=== PATIENT | female | born 1995 | race Caucasian/White ===

== ENCOUNTER 2020-10-16 21:34 | Emergency (ER) | payer MEDICAID, SELFPAY ==
[2020-10-16 21:35] VITALS: BP 129/79; PULSE 82; RESP 16; TEMP 36.6; O2SAT 99; BMI 29.2
--- NOTE | 2020-10-16 23:22 | RAD_ITS ---
STUDY: X-RAY CHEST REASON FOR EXAM: Female, 25 years old. cough TECHNIQUE: Single frontal view of the chest. COMPARISON: None. FINDINGS: The lungs are clear and expanded. There is no demonstrated pleural abnormality. Normal size heart. Normal mediastinum and tone. Normal visualized pulmonary arteries. Normal visualized aortic arch and descending thoracic aorta. Normal visualized thoracic spine. Normal visualized ribs, clavicles, and shoulders. There is no demonstrated abnormality of the visualized soft tissue structures of the upper abdomen. RAD/Chest 1 View (Portable) IMPRESSION: Normal x-ray examination of the chest. Electronically Signed: Itz Carlton MD at 23:59 EDT Tel , Service support ,
[2020-10-16 23:35] LABS: Absolute Lymphocyte Count 2.47 X10^3/uL (0.83-4.51); Basophil# 0.07 X10^3/uL; Basophil% 0.8 % (0-1); Eosinophil# 0.16 X10^3/uL; Eosinophils% 1.8 % (0-5); Hematocrit 45.8 % (37-47); Hemoglobin 14.5 g/dL (12.0-15.0); Lymphocyte # 2.47 X10^3/ul (0.83-4.51); Lymphocyte % 28.3 % (19-41); Mean Corp Hgb Conc 31.7 g/dL (32-36); Mean Corpuscular Hgb 29.1 pg (27.0-32.0); Mean Platelet Vol. 11.4 fl (6.2-12.0); Monocyte# 1.04 X10^3/uL; Monocyte% 11.9 % (0-10); NRBC Flagged by Analyzer 0 % (0-5); Neutrophil # 4.96 X10^3/uL (2.7-7.7); Neutrophil % 56.9 % (47-70); Platelet Count 361 K/mm3 (150-450); RBC Distribution Width CV 13.2 % (11.6-14.6); RBC Distribution Width SD 44.9 fl (35.1-43.9); Red Blood Count 4.98 M/mm3 (4.2-5.4); White Blood Count 8.7 K/mm3 (4.4-11.0)
[2020-10-16 23:40] LABS: Anion Gap 6 (5-15); BUN 16 mg/dL (7-18); Calcium,Total 9.8 mg/dL (8.5-10.1); Chloride 106 mmol/L (98-107); EST Glomerular Filtration Rate 73 mL/min (>60); Est Glom Filt Rate - Afr Amer 89 mL/min (>60); Estimated Creatinine Clearance 62.85 ml/min; Glucose 82 mg/dL (74-106); Potassium 4.3 mmol/L (3.5-5.1); Sodium Level 139 mmol/L (136-145)
[2020-10-16] MEDS: Metoclopramide 10 MG/2 ML Vial IV (23:40)
[2020-10-16] MEDS: Ketorolac 30 MG/ML Syringe IV (23:40)
[2020-10-16] MEDS: DiphenhydrAMINE 50 MG/ML Syringe 25 MG IV (23:40)
[2020-10-16] MEDS: 0.9% Normal Saline 1,000 ML 1000 ML IV (23:40)
--- NOTE | 2020-10-17 01:21 | EX.ED.DYSGE1 ---
HPI History of Present Illness Chief Complaint: Headache Informant: patient Onset/Context/Timing Onset: Days (3 days) Context: Gradual Onset Timing: Waxes and wanes Narrative Narrative: Patient presents with a 3-day history of migraine headache. She states it is worse at her temples. She also complains of some shortness of breath and body aches. She reports decreased energy and cough with yellow sputum production. She does not know if she has had a fever but has had some chills. Patient does not believe she has Covid but did not receive the vaccine. [facility] Medical History Asthma Migraine Home Medications NK 10/16/20 [History Last Taken Unknown] Allergy/AdvReac Type Severity Reaction Status Date / Time No Known Allergies Allergy Verified 10/16/20 21:34 Social History Smoking Status: Current every day smoker tobacco type: e-cigarettes ROS ROS ED Constitutional Constitutional ED: Reports chills and sweats; Denies fever(s) Eyes Eyes: Denies change in vision ENT ENT ED: Denies sore throat Cardiovascular Cardiovascular: Denies chest pain Respiratory/Chest Respiratory/Chest: Reports cough, dyspnea and sputum Gastrointestinal Gastrointestinal: Denies abdominal pain, diarrhea, nausea or vomiting Genitourinary Genitourinary ED: Denies dysuria Musculoskeletal Musculoskeletal: Reports myalgias; Denies back pain Integumentary Denies rash Neurologic Neurologic: Reports headache(s); Denies weakness Psychiatric Psychiatric: Denies anxiety or depression Allergic/Immunologic Allergic/Immunologic ED: Denies urticaria EXAM Physical Exam Const Vital Signs: 10/16/20 21:35 10/17/20 01:41 Temperature 97.8 F Temperature Source Temporal Pulse Rate 82 Respiratory Rate 16 14 Blood Pressure 129/79 H Blood Pressure Mean 95 Pulse Ox 99 Oxygen Delivery Method Room Air Positive well nourished and well developed General Appearance ED: well developed HEENT Reports normocephalic and head/scalp atraumatic Eyes PERRL and EOMs intact bilaterally Neck supple Chest Wall inspection of chest normal and palpation of chest normal Resp normal respiratory effort and clear to auscultation bilaterally Cardio regular rate and regular rhythm GI normal to inspection, nondistended, normoactive bowel sounds Palpation: soft Extremity normal to inspection Neuro oriented x3 and no sensory deficits noted Sensorium / Orientation: alert Motor Exam: strength 5/5 throughout Psych mental status grossly normal Skin no rashes or lesions noted MDM MDM MDM Narrative Medical decision making narrative: Patient given IV fluids along with Toradol, Reglan, Benadryl. Lab work, chest x-ray, Covid swab obtained. Lab Data Attestation: I reviewed the patient's lab results. Labs: Laboratory Results - last 24 hr 10/16/20 10/16/20 22:31 22:31 WBC 8.7 RBC 4.98 Hgb 14.5 Hct 45.8 MCV 92.0 MCH 29.1 MCHC 31.7 L RDW Std Deviation 44.9 H RDW Coeff of Satish 13.2 Plt Count 361 MPV 11.4 Immature Gran % (Auto) 0.300 Neut % (Auto) 56.9 Lymph % (Auto) 28.3 Burke % (Auto) 11.9 H Eos % (Auto) 1.8 Baso % (Auto) 0.8 Absolute Neuts (auto) 5.0 Absolute Lymphs (auto) 2.47 Nucleated RBC % 0 Sodium 139 Potassium 4.3 Chloride 106 Carbon Dioxide 27.0 Anion Gap 6 BUN 16 Creatinine 1.00 Estim Creat Clear Calc 62.85 Est GFR (MDRD) Af Amer 89 Est GFR (MDRD) Non-Af 73 BUN/Creatinine Ratio 16.0 Glucose 82 Calcium 9.8 Radiography Chest X-Ray - ED: 1 View, Read by ED Physician, Normal, Heart, Lungs and Mediastinum Diagnostic Testing: Radiology Impression Chest X-Ray 10/16/20 23:22 IMPRESSION: Normal x-ray examination of the chest. Electronically Signed: Itz Carlton MD at 23:59 EDT Tel , Service support , Treatment and Re-Evaluation Comments:: Repeat evaluation patient does report improvement in her headache. Test results are discussed with her. Covid swab is negative. Patient likely has another viral illness given her similar symptoms. She is referred to local PCP to establish primary care. Discharge Plan Triage Chief Complaint: Headache ED Provider: Zoey Hernandez Dx/Rx/DC Orders Clinical Impression: Viral syndrome, Migraine Instructions: ED, Migraine (Classical), ED Viral Syndrome (Adult) Prescriptions: No Action NK RF: 0 Primary Care Provider: Care Physician,No Primary Referrals: Heidy Hollins MD [STAFF PHYSICIAN] - As Needed Care Physician,No Primary [Primary Care Provider] - Disposition Disposition: Home, Self Care Discharge Date/Time: 10/17/20 01:42
[2020-10-17 01:41] VITALS: RESP 14
== END 2020-10-17 01:42 | disposition home or self-care (01) ==
PROVIDERS: Emergency Provider Emergency Medicine
DX: B34.9 Viral infection, unspecified (principal); G43.909 Migraine, unspecified, not intractable, without status migrainosus; R06.02 Shortness of breath; M79.10 Myalgia, unspecified site; J45.909 Unspecified asthma, uncomplicated; Z20.822 Contact with and (suspected) exposure to COVID-19; F17.290 Nicotine dependence, other tobacco product, uncomplicated
CPT/HCPCS: 71045; 80048; 85025; 87426; 96361; 96374; 96375; 99285; J7030